=== PATIENT | female | born 1955 | race Caucasian/White ===

== ENCOUNTER → 2024-02-02 | Outpatient (CLI) | payer MEDICARE, BC ==
--- NOTE | 2024-02-02 17:14 | US ---
EXAMINATION TYPE: US extremity nonvasc mass LT DATE OF EXAM: 02/02/2024 COMPARISON: NONE CLINICAL INDICATION: Female, 68 years old with history of R22.40 LOWER LIMB MASS; lump left medial up per calf, just below left knee TECHNIQUE: Grayscale imaging the area of concern in the medial calf complex anechoic fluid collection . FINDINGS: scanned area of concern, left medial upper calf, complex anechoic area noted = 9.5 x 1.9 x 4.0cm. 2nd complex anechoic area visualized within left popliteal fossa = 5.2 x 1.6 x 2.5cm (Alford's cyst) IMPRESSION: Complex fluid collection possibly representing leaking/plunging Alford's cyst. [facility], , 02/02/2024 5:12 PM
== END | disposition home or self-care (01) ==
LOC: RADUSWWP 15:31
PROVIDERS: ATTEND Family Medicine